=== PATIENT | female | born 1990 | race African-American/Black ===

== ENCOUNTER 2020-11-10 03:14 | Emergency (ER) | payer OTHER ==
[~2020-11-10] VITALS: Ht 170.2 cm; Wt 89.8 kg
[2020-11-10 03:17] VITALS: BP 140/59
[2020-11-10 04:10] LABS: ABSOLUTE NEUTROPHILS 2.8 thou/uL (1.4-8.2); BASOPHILS 1.3 % (0.0-2.0); EOSINOPHILS 2.7 % (0.0-3.0); HEMATOCRIT 27.3 % (37.0-47.0); HEMOGLOBIN 8.5 gm/dL (12.0-15.0); LYMPHOCYTES 39.7 % (24.0-44.0); MCH 21.5 pg (26.0-34.0); MCHC 31.1 g/dL (28.0-37.0); MCV 69.2 fL (80.0-100.0); MONOCYTES 4.9 % (1.0-8.0); PLATELET COUNT 216 thou/uL (150-400); POLYS 51.4 % (36.0-66.0); RBC 3.95 mil/uL (4.20-5.00); RDW 19.6 % (10.5-14.5); WBC 5.5 thou/uL (4.0-11.0)
[2020-11-10 04:23] LABS: URINE BILIRUBIN NEGATIVE (Negative); URINE BLOOD 1+ (Negative); URINE CLARITY CLEAR; URINE COLOR YELLOW; URINE GLUCOSE-RANDOM* TRACE (Negative); URINE KETONES NEGATIVE (Negative); URINE LEUKOCYTES-REFLEX NEGATIVE (Negative); URINE NITRITE-REFLEX NEGATIVE (Negative); URINE PROTEIN (DIPSTICK) 3+ (Negative); URINE UROBILINOGEN 0.2 E.U./dl (0.2-1.0)
[2020-11-10] MEDS ORDERED: BUSPIRONE HCL5 MG PO (04:24)
[2020-11-10] MEDS ORDERED: FUROSEMIDE 20 M20 M1 PO (04:25)
[2020-11-10] MEDS ORDERED: OMEPRAZOLE 20 M20 M1 PO (04:26)
[2020-11-10] MEDS ORDERED: INSULIN AS100 UNIT/3 SUBQ (04:26)
[2020-11-10] MEDS ORDERED: HYDRALAZINE 2525 M1 PO (04:26)
[2020-11-10 04:31] LABS: BACTERIA-REFLEX 1-9 Few /HPF (None Seen); CASTS None Seen /LPF (None Seen); CRYSTALS None Seen /LPF (None Seen); MUCUS None Seen strn/LPF (None Seen); SQUAMOUS 4-10 Moderate /LPF (0-3); URINE RBC 3-10 Few /HPF (NONE SEEN); URINE WBC-REFLEX None Seen /HPF (0-5)
[2020-11-10 04:54] LABS: CALCIUM 8.5 mg/dL (8.5-10.1); CREATININE 4.2 mg/dL (0.6-1.0); POTASSIUM 4.1 mmol/L (3.5-5.1)
[2020-11-10 04:59] LABS: TOTAL BILIRUBIN 0.4 mg/dL (0.2-1.0); TOTAL PROTEIN 6.9 g/dL (6.4-8.2)
== END 2020-11-10 05:00 | disposition left against medical advice (07) ==
LOC: ER 03:14
PROVIDERS: Emergency Medicine Emergency Medical Services
DX: R10.13 Epigastric pain (principal); R11.2 Nausea with vomiting, unspecified; E11.9 Type 2 diabetes mellitus without complications; I10 Essential (primary) hypertension; Z88.1 Allergy status to other antibiotic agents; Z88.6 Allergy status to analgesic agent; Z88.8 Allergy status to other drugs, medicaments and biological substances; Z88.0 Allergy status to penicillin

== ENCOUNTER 2020-11-22 23:09 | Emergency (ER) | payer OTHER ==
[~2020-11-22] VITALS: Ht 170.2 cm; Wt 88.9 kg
[~2020-11-22 23:09] MED LIST: BUSPIRONE HCL5 MG PO; FUROSEMIDE 20 M20 M1 PO; HYDRALAZINE 2525 M1 PO; INSULIN AS100 UNIT/3 SUBQ; OMEPRAZOLE 20 M20 M1 PO
[2020-11-23 00:15] LABS: CALCIUM 8.7 mg/dL (8.5-10.1); CREATININE 5.2 mg/dL (0.6-1.0); POTASSIUM 5.1 mmol/L (3.5-5.1)
[2020-11-23 00:21] LABS: ALBUMIN 3.1 g/dL (3.4-5.0); TOTAL BILIRUBIN 0.7 mg/dL (0.2-1.0); TOTAL PROTEIN 6.6 g/dL (6.4-8.2)
[2020-11-23 01:13] LABS: URINE BILIRUBIN NEGATIVE (Negative); URINE BLOOD 1+ (Negative); URINE CLARITY CLEAR; URINE COLOR YELLOW; URINE GLUCOSE-RANDOM* 3+ (Negative); URINE KETONES NEGATIVE (Negative); URINE LEUKOCYTES-REFLEX NEGATIVE (Negative); URINE NITRITE-REFLEX NEGATIVE (Negative); URINE PROTEIN (DIPSTICK) 3+ (Negative); URINE SPECIFIC GRAVITY 1.015 (1.005-1.035); URINE UROBILINOGEN 0.2 E.U./dl (0.2-1.0)
[2020-11-23 01:22] LABS: AMP/METHAMP Negative (Negative); BARBITURATES Negative (Negative); BENZODIAZEPINES Negative (Negative); COCAINE Negative (Negative); METHADONE Negative (Negative); OPIATES Negative (Negative); PCP Negative (Negative)
[2020-11-23 01:36] LABS: BACTERIA-REFLEX None Seen /HPF (None Seen); CASTS None Seen /LPF (None Seen); CRYSTALS None Seen /LPF (None Seen); MUCUS 0-3 Light strn/LPF (None Seen); SQUAMOUS 0-3 Few /LPF (0-3); TRANSITIONAL EPITHEL CELL 0-3 Few /LPF (None Seen); URINE RBC 1-2 Rare /HPF (NONE SEEN); URINE WBC-REFLEX None Seen /HPF (0-5)
[2020-11-23 02:16] VITALS: BP 168/98
== END 2020-11-23 02:18 | disposition home or self-care (01) ==
LOC: ER 23:09
PROVIDERS: Emergency Medicine
DX: R10.13 Epigastric pain (principal); I12.9 Hypertensive chronic kidney disease with stage 1 through stage 4 chronic kidney disease, or unspecified chronic kidney disease; E11.22 Type 2 diabetes mellitus with diabetic chronic kidney disease; N18.9 Chronic kidney disease, unspecified; Z88.0 Allergy status to penicillin; Z88.1 Allergy status to other antibiotic agents; Z88.8 Allergy status to other drugs, medicaments and biological substances; Z79.4 Long term (current) use of insulin; Z79.899 Other long term (current) drug therapy

== ENCOUNTER 2021-01-01 11:12 | Observation (INO) | payer OTHER ==
[~2021-01-01] VITALS: Ht 172.7 cm; Wt 81.6 kg
[2021-01-01 11:24] VITALS: BP 156/114
--- NOTE | 2021-01-01 14:38 | NUR ---
MEAT AND SEAFOOD MANAGER PAGING IV TEAM AT THIS TIME. PT ENCOURAGED SLOW DEEP BREATHS, CALL LIGHT ENCOURAGED TO USE, PT GIVEN MORE BLANKETS FOR COMFORT
--- NOTE | 2021-01-01 15:01 | NUR ---
IV TEAM AT BEDSIDE AT THIS TIME
[2021-01-01 15:23] LABS: HEMATOCRIT 28.9 % (37.0-47.0); HEMOGLOBIN 9.1 gm/dL (12.0-15.0); MCH 21.8 pg (26.0-34.0); MCHC 31.6 g/dL (28.0-37.0); MCV 69.2 fL (80.0-100.0); RBC 4.18 mil/uL (4.20-5.00); WBC 10.8 thou/uL (4.0-11.0)
[2021-01-01 15:30] LABS: CALCIUM 8.9 mg/dL (8.5-10.1); CREATININE 4.7 mg/dL (0.6-1.0); POTASSIUM 3.3 mmol/L (3.5-5.1)
[2021-01-01 15:36] LABS: ALBUMIN 3.5 g/dL (3.4-5.0); TOTAL BILIRUBIN 0.7 mg/dL (0.2-1.0)
[2021-01-01 16:03] LABS: URINE BILIRUBIN NEGATIVE (Negative); URINE BLOOD 2+ (Negative); URINE CLARITY CLEAR; URINE COLOR YELLOW; URINE GLUCOSE-RANDOM* 2+ (Negative); URINE KETONES TRACE (Negative); URINE LEUKOCYTES-REFLEX NEGATIVE (Negative); URINE NITRITE-REFLEX NEGATIVE (Negative); URINE PROTEIN (DIPSTICK) 3+ (Negative); URINE UROBILINOGEN 0.2 E.U./dl (0.2-1.0)
[2021-01-01 16:39] LABS: SQUAMOUS >10 Many /LPF (0-3)
[2021-01-01 16:40] LABS: URINE WBC-REFLEX 6-15 Few /HPF (0-5)
[2021-01-01 16:41] LABS: URINE RBC 3-10 Few /HPF (NONE SEEN)
[2021-01-01 16:42] LABS: BACTERIA-REFLEX 1-9 Few /HPF (None Seen)
--- NOTE | 2021-01-01 17:01 | NUR ---
AFTER ED PROVIER WENT TO REASSES PT AFTER PO CHALLENGE. PT BEGAN CRYING AGAIN AND NOT ABLE TO REDIRECT. MEDS ORDERED. WHEN THIS RN WENT TO ADMINISTER MEDS ON AUG, PT IV FROM IV TEAM HAD INFILTRATED. IV TEAM REPAGED. PT AGAIN ENCOURAGED SLOW DEEP BREATHS AND REPOSITIONED IN BED
[2021-01-01 17:25] LABS: AMP/METHAMP Negative (Negative); BARBITURATES Negative (Negative); BENZODIAZEPINES POSITIVE (Negative); COCAINE Negative (Negative); METHADONE Negative (Negative); OPIATES Negative (Negative); PCP Negative (Negative)
--- NOTE | 2021-01-01 19:14 | NUR ---
REPORT GIVEN TO NELL RANKIN AT THIS TIME
[2021-01-01 19:20] VITALS: BP 193/125
[2021-01-01 19:53] VITALS: BP 173/95
[2021-01-02 09:07] LABS: HEMATOCRIT 27.9 % (37.0-47.0); HEMOGLOBIN 8.9 gm/dL (12.0-15.0); MCH 22.2 pg (26.0-34.0); MCHC 31.9 g/dL (28.0-37.0); MCV 69.8 fL (80.0-100.0); RDW 18.2 % (10.5-14.5); WBC 5.6 thou/uL (4.0-11.0)
[2021-01-02 09:10] VITALS: BP 163/105
[2021-01-02 09:18] LABS: CALCIUM 8.3 mg/dL (8.5-10.1); CREATININE 4.4 mg/dL (0.6-1.0); POTASSIUM 3.1 mmol/L (3.5-5.1)
--- NOTE | 2021-01-02 10:06 | NUR ---
ASSUMED CARE OF PT AT 0700 THIS MORNING. PT WAS C/O ABD PAIN, N/V AND WEAKNESS. PT WAS IN BED ASLEEP DURING REPORT. PT WAS AWAKE WHEN GOING TO ASSESS AND WAS RELUCTANT IN LETTING ME. PT REFUSED VS FROM TILER. PT C/O PAIN AT THE IV LOCATION IN THE UPPER LT ARM. I ASSESSED IT AND THERE WAS NO INFLAMATION OR FLUID IN THE TISSUES. PT STATED SHE WANTED TO JUST GO HOME. I ADVISED HER THAT HER HCP IS ON THE FLOOR AND SHE CAN SPEAK WITH HIM. PT DC'D HER IV AND WAS DRESSED AND WALKING OFF THE UNIT. PT WAS APPROACHED BY THE UNIT SECERATARY AND WAS ASKED WHY SHE WAS LEAVING AND IF SHE COULD RETURN TO HER ROOM AND SIGN AN AMA. PT REFUSED TO RETURN. MOTORCYCLE TESTER WAS REQUESTED TO HELP WITH THE INCIDENT AND SHE WAS UNABLE TO CONVINCE PT IN STAYING. PT WALKED OUT AND IN THE ELEVATOR. CONTACTED TODDLER CAREGIVER AND SECURITY TO NOTIFY THEM OF THE INCIDENT. I WILL BE FILING A VERGE REPORT.
--- NOTE | 2021-01-02 10:59 | NUR ---
CM ATTEMPTED TO MEET WITH PATIENT THIS AM BUT PER BEDSIDE RN PATIENTS HAS LEFT AMA.
--- NOTE | 2021-01-03 00:55 | NUR ---
*LATE ENTRY* ON 01.01.21 AT APPROX 1953, PT ARRIVED TO UNIT, SLEEPING. UPON AROUSAL, PT WRENCHING BODY, CRYING, AND SCREAMING. UPON ASSESSMENT, PT AOX4, REFUSING TO SIGN CONSENTS AND VITALS ASSESSMENT. PT REPORTS 10/10 GENERALIZED ABDOMINAL PAIN. PT RECEIVING PRN IV MORPHINE Q4HR. PT DENIES SOB WHILE ON ROOM AIR. PT TOLERATING PO INTAKE OF LIQUIDS AND CLEAR LIQUID DIET WITHOUT ISSUE. PT REPORTS NAUSEA WITH EMESIS, EMESIS NOT OBSERVED. PT RECEIVING PRN IV HALDOL Q6HR AND PRN IV ZOFRAN Q4HR. PT AMBULATING INDEPENDENTLY IN ROOM AND TO BATHROOM, RESTING IN BED OTHERWISE. FREQUENT REPOSITIONING ENCOURAGED WHILE IN BED, PT SHIFTING INDEPENDENTLY. SENSATION INTACT, CAPILLARY REFILL LESS THAN 3SEC, PERIPHAL PULSES PALPABLE IN ALL EXTREMITIES. UPON HISTORY ASSESSMENT, PT REPORTING WEIGHT LOSS FROM APPROX 225LBS TO 181LBS WITHIN LAST 3MOS, NO SPECIAL DIET AT HOME, NO HOME MEDICATIONS. ADDITIONALLY, PT REPORTS SMOKING APPROX 8 CIGARRETTES PER DAY ALONG WITH RECREATIONAL MARIJUANA USE, DENIES ALCOHOL USE. PT REPORTS LIVING HOME ALONE WITH LIMITED FRIEND AND FAMILY SUPPORT. FULL ADMISSION ASSESSMENT DIFFICULT DUE TO PT PAIN AND NAUSEA. PT ENCOURAGED TO NOTIFY STAFF FOR ALL NEEDS, CALL LIGHT WITHIN REACH, BED ALARM LOCKED IN LOWEST POSITION, FREQUENT REPOSITIONING ENCOURAGED.
== END 2021-01-02 09:20 | disposition left against medical advice (07) ==
LOC: ER 11:12 → 4S 19:09 → EROBS 19:09 → 4S 19:09
PROVIDERS: Nurse Practitioner Family; ADMIT Hospitalist; ATTEND Hospitalist
DX: R11.2 Nausea with vomiting, unspecified (principal); R10.13 Epigastric pain; E11.22 Type 2 diabetes mellitus with diabetic chronic kidney disease; I12.0 Hypertensive chronic kidney disease with stage 5 chronic kidney disease or end stage renal disease; N18.5 Chronic kidney disease, stage 5; N30.01 Acute cystitis with hematuria; F17.290 Nicotine dependence, other tobacco product, uncomplicated; Z79.899 Other long term (current) drug therapy; Z79.4 Long term (current) use of insulin; Z88.0 Allergy status to penicillin; Z88.1 Allergy status to other antibiotic agents; Z88.5 Allergy status to narcotic agent; Z88.8 Allergy status to other drugs, medicaments and biological substances
CPT/HCPCS: 10195

== ENCOUNTER 2021-01-03 06:24 | Emergency (ER) | payer OTHER ==
[~2021-01-03] VITALS: Ht 170.2 cm; Wt 82.1 kg
[2021-01-03 08:55] LABS: ABSOLUTE NEUTROPHILS 3.4 thou/uL (1.4-8.2); BASOPHILS 1.2 % (0.0-2.0); EOSINOPHILS 1.2 % (0.0-3.0); HEMATOCRIT 27.6 % (37.0-47.0); HEMOGLOBIN 8.7 gm/dL (12.0-15.0); LYMPHOCYTES 27.7 % (24.0-44.0); MCHC 31.5 g/dL (28.0-37.0); MCV 69.9 fL (80.0-100.0); MONOCYTES 6.4 % (1.0-8.0); PLATELET COUNT 196 thou/uL (150-400); POLYS 63.5 % (36.0-66.0); RBC 3.95 mil/uL (4.20-5.00); RDW 18.3 % (10.5-14.5); WBC 5.3 thou/uL (4.0-11.0)
[2021-01-03 09:05] LABS: CALCIUM 8.3 mg/dL (8.5-10.1); CREATININE 4.7 mg/dL (0.6-1.0); POTASSIUM 3.5 mmol/L (3.5-5.1)
[2021-01-03 09:11] LABS: ALBUMIN 3.2 g/dL (3.4-5.0); TOTAL BILIRUBIN 0.6 mg/dL (0.2-1.0); TOTAL PROTEIN 6.6 g/dL (6.4-8.2)
[2021-01-03 09:53] VITALS: BP 179/95
[2021-01-03 12:36] LABS: ANISOCYTOSIS 2+; HYPOCHROMASIA 2+; MICROCYTES 2+
--- NOTE | 2021-01-04 14:28 | EKG ---
[place] [address] [employer] [place] [address] ELECTROCARDIOGRAM REPORT Name: INES MCLAUGHLIN Room #: [facility] Gissel#: [id number] Admission: 01/03/21 Attend Phys: Discharge: 01/03/21 Date of : 88 Report #: [id number] [facility] ED Test Date: 2021-01-03 Test Time: 06:28:57 Pat Name: INES MCLAUGHLIN Department: Room: Gender: F Wet Process Technician: KODI : 1990 Requested By: Dane Rubalcava Order Number: [id number] MD: Tee Langley Measurements Intervals [place] Rate: 84 P: 32 NH: 146 QRS: 11 QRSD: 81 T: 29 QT: 377 QTc: 446 Interpretive Statements Sinus rhythm Poor R wave progression No previous ECG available for comparison Electronically Signed On 01-04-2021 14:28:34 CDT by Tee Langley [email or web address] <ELECTRONICALLY SIGNED> By: Tee Langley MD, [facility] 01/04/21 1428 0628 0628 Tee Langley MD, FACC /EPI
== END 2021-01-03 09:53 | disposition home or self-care (01) ==
LOC: ER 06:24
PROVIDERS: Emergency Medicine
DX: G89.29 Other chronic pain (principal); R10.13 Epigastric pain; E11.9 Type 2 diabetes mellitus without complications; I10 Essential (primary) hypertension; F17.210 Nicotine dependence, cigarettes, uncomplicated; Z79.4 Long term (current) use of insulin; Z88.1 Allergy status to other antibiotic agents; Z91.010 Allergy to peanuts

== ENCOUNTER 2021-01-06 00:58 | Emergency (ER) | payer OTHER ==
[~2021-01-06] VITALS: Ht 170.2 cm; Wt 82.1 kg
[2021-01-06 02:56] LABS: HEMATOCRIT 27.3 % (37.0-47.0); HEMOGLOBIN 8.7 gm/dL (12.0-15.0); MCH 22.4 pg (26.0-34.0); MCHC 31.9 g/dL (28.0-37.0); MCV 70.1 fL (80.0-100.0); PLATELET COUNT 214 thou/uL (150-400); RDW 17.9 % (10.5-14.5); WBC 4.5 thou/uL (4.0-11.0)
[2021-01-06 02:59] LABS: CALCIUM 8.7 mg/dL (8.5-10.1); POTASSIUM 3.8 mmol/L (3.5-5.1)
[2021-01-06 03:05] LABS: ALBUMIN 3.3 g/dL (3.4-5.0); TOTAL BILIRUBIN 0.6 mg/dL (0.2-1.0); TOTAL PROTEIN 6.8 g/dL (6.4-8.2)
[2021-01-06 03:21] LABS: URINE BILIRUBIN NEGATIVE (Negative); URINE BLOOD 2+ (Negative); URINE CLARITY CLEAR; URINE COLOR YELLOW; URINE GLUCOSE-RANDOM* 3+ (Negative); URINE KETONES NEGATIVE (Negative); URINE LEUKOCYTES-REFLEX NEGATIVE (Negative); URINE NITRITE-REFLEX NEGATIVE (Negative); URINE PROTEIN (DIPSTICK) 3+ (Negative); URINE SPECIFIC GRAVITY 1.015 (1.005-1.035); URINE UROBILINOGEN 0.2 E.U./dl (0.2-1.0)
[2021-01-06 03:34] LABS: SQUAMOUS 4-10 Moderate /LPF (0-3)
[2021-01-06 03:35] LABS: BACTERIA-REFLEX 1-9 Few /HPF (None Seen); CASTS None Seen /LPF (None Seen); CRYSTALS None Seen /LPF (None Seen); MUCUS 0-3 Light strn/LPF (None Seen); URINE RBC 3-10 Few /HPF (NONE SEEN); URINE WBC-REFLEX 0-5 Rare /HPF (0-5)
[2021-01-06 04:43] LABS: ABSOLUTE NEUTROPHILS 1.7 thou/uL (1.4-8.2); ANISOCYTOSIS 1+; HYPOCHROMASIA 2+; MICROCYTES 2+; PLATELET ESTIMATE NORMAL; POIKILOCYTOSIS 1+
[2021-01-06 05:15] VITALS: BP 212/115
== END 2021-01-06 05:15 | disposition home or self-care (01) ==
LOC: ER 00:58
PROVIDERS: Emergency Medicine
DX: R11.2 Nausea with vomiting, unspecified (principal); R10.13 Epigastric pain; E11.9 Type 2 diabetes mellitus without complications; I10 Essential (primary) hypertension; Z79.4 Long term (current) use of insulin; Z88.6 Allergy status to analgesic agent; Z88.0 Allergy status to penicillin

== ENCOUNTER 2021-02-06 00:28 | Emergency (ER) | payer OTHER ==
[~2021-02-06] VITALS: Ht 170.2 cm; Wt 82.1 kg
[2021-02-06] MEDS ORDERED: HALDOL 0.5 MG0.5 MG PO (01:22)
[2021-02-06 01:30] VITALS: BP 180/90
== END 2021-02-06 01:30 | disposition home or self-care (01) ==
LOC: ER 00:28
DX: R10.816 Epigastric abdominal tenderness (principal); R11.0 Nausea; E11.9 Type 2 diabetes mellitus without complications; I10 Essential (primary) hypertension; N17.9 Acute kidney failure, unspecified; Z79.4 Long term (current) use of insulin; Z79.899 Other long term (current) drug therapy; Z88.1 Allergy status to other antibiotic agents; Z88.0 Allergy status to penicillin; Z88.5 Allergy status to narcotic agent; Z88.8 Allergy status to other drugs, medicaments and biological substances